=== PATIENT | female | born 1985 | race Two or more races ===

== ENCOUNTER 2024-07-07 15:12 | Emergency (ER) | payer MEDICAID, SELFPAY ==
[2024-07-07 15:26] VITALS: BMI 44.9
[2024-07-07 15:38] VITALS: BP 151/93; PULSE 118; RESP 20; TEMP 39.2; O2SAT 97
--- NOTE | 2024-07-07 16:07 | PD.EDURI ---
Upper Respiratory Inf. RME/HPI General Stated Complaint: FEVER Time Seen by Provider: 07/07/24 15:37 Arrival date/time: 07/07/24 15:12 38-year-old female reports with complaints of bodyaches fevers cough and congestion for several days. Patient states that she has been taking azyl-bhi-miobspr medications with no improvement of symptoms. Patient denies shortness of breath chest pain nausea vomiting weakness or fatigue Limitations: no limitations Related Data Home Medications ?Medication ?Instructions ?Recorded ?Confirmed ibuprofen 600 mg tablet 600 mg PO Q6H PRN Pain 02/13/20 02/13/20 Previous Rx's ?Medication ?Instructions ?Recorded fluconazole 150 mg tablet 150 mg PO QDAY #1 tab 02/13/20 (Diflucan) acetaminophen 500 mg tablet 1,000 mg (2 x 500 mg) PO QID PRN 05/31/21 fever or pain #30 tabs azithromycin 250 mg tablet See Rx Instructions PO .COMPLEX #6 05/31/21 tabs meclizine 50 mg tablet 50 mg PO BID PRN dizziness #20 tabs 04/11/23 dicyclomine 20 mg tablet 20 mg PO QID PRN abdominal pain 12/13/23 #14 tabs ondansetron 4 mg disintegrating 4 mg PO TID PRN nausea and 12/13/23 tablet vomiting #14 tabs Allergies Allergy/AdvReac Type Severity Reaction Status Date / Time No Known Allergies Allergy Verified 07/07/24 15:30 Review of Systems Constitutional Constitutional: Denies chills, Reports fever(s) and Denies headache(s) ENT Ears, Nose, Mouth, and Throat: Denies headache(s), Denies throat swelling, Denies tongue swelling and Denies vertigo Cardiovascular Cardiovascular: Denies chest pain and Denies dyspnea Respiratory Respiratory: Reports cough and Denies dyspnea Gastrointestinal Gastrointestinal: Denies nausea and Denies vomiting Integumentary/Breasts Skin/Breast: Denies new lesions and Denies rash Neurologic Neurologic: Denies headache(s) and Denies vertigo Hematologic/Lymphatic Hematologic/Lymphatic: Denies easy bleeding and Denies easy bruising Allergic/Immunologic Allergic/Immunologic: Denies throat swelling and Denies tongue swelling ED Exam General Limitations: Present no limitations General appearance: Present alert and in no apparent distress Head Head exam: Present atraumatic Eye Eye exam: Present normal appearance, PERRL and EOMI ENT ENT exam: Present normal exam, normal oropharynx and mucous membranes moist Neck Neck exam: Present normal inspection, full ROM and trachea midline Chest Chest inspection: Present normal inspection and symmetric chest wall rise Respiratory Respiratory exam: Present normal lung sounds bilaterally Cardiovascular Cardiovascular exam: Present regular rate, normal rhythm and normal heart sounds Abdominal Exam Abdominal exam: Present soft and normal bowel sounds Extremities Exam Extremities exam: Present normal inspection and full ROM Back Exam Back exam: Present normal inspection and full ROM Neurological Exam Neurological exam: Present alert, oriented X3 and CN II-XII intact Psychiatric Psychiatric exam: Present normal affect and normal mood Skin Skin exam: Present warm, dry, intact and normal color Course Quality Measures none Vital Signs Vital signs: Vital Signs Temperature 102.5 F H 07/07/24 15:38 Pulse Rate 118 H 07/07/24 15:38 Respiratory Rate 20 07/07/24 15:38 Blood Pressure 151/93 H 07/07/24 15:38 Pulse Oximetry (%) 97 07/07/24 15:38 Oxygen Delivery Method Room Air 07/07/24 15:38 Upper Respiratory Infection Patient data External records reviewed:: None Clinical information provided by:: patient Social determinants that could affect healthcare access:: none Patient has the following chronic illnesses:: NONE How is presenting disease/condition affected by chronic disease/condition?: no chronic disease Evaluation data The following diagnostics were reviewed and interpreted by me:: lab results Lab and/or radiology exams considered but not ordered:: none Interpretation Summary: Influenza A positive COVID-negative Medications / Prescriptions Medications or Prescriptions considered but not ordered:: None Medication administrations:: Ibuprofen Consultations Consultation(s) initiated? (list below): No Diagnosis Upper Respiratory Differential Diagnosis: upper respiratory infection, viral infection and influenza Most likely diagnosis given after review of the tests above:: flu Admission Indicated Admission indicated?: not indicated Admission Request Was there a request for admission?: No Disposition Plan Disposition Plan: Discharge Discharge Attestation Discharge Attestation: The patient and all family members were given an opportunity to ask questions and understood the discharge instructions. Discharge instructions specifically effects, indications for sooner follow up or return to the emergency department, and the expected course of current diagnosis. Patient condition: Stable Discharge Plan Plan Patient Disposition: HOME (Self Care) Prescriptions/Referrals Prescriptions/Med Rec: No Action ibuprofen 600 mg Tablet 600 mg PO Q6H PRN (Reason: Pain) fluconazole [Diflucan] 150 mg tablet 150 mg PO QDAY Qty: 1 0RF azithromycin 250 mg tablet See Rx Instructions .ROUTE .COMPLEX Qty: 6 0RF Rx Instructions: For 250 mg dose pack: take 500 mg today (day 1), then 250 mg for 4 days (days 2-5) acetaminophen 500 mg tablet 1,000 mg PO QID PRN (Reason: fever or pain) Qty: 30 0RF meclizine 50 mg tablet 50 mg PO BID PRN (Reason: dizziness) Qty: 20 0RF dicyclomine 20 mg tablet 20 mg PO QID PRN (Reason: abdominal pain) Qty: 14 0RF ondansetron 4 mg tablet,disintegrating 4 mg PO TID PRN (Reason: nausea and vomiting) Qty: 14 0RF Problem List Clinical Impression: Influenza A Patient/Caregiver Discharge Instructions Discharge Activity: activity as tolerated Education Materials: ED URI, Viral, No Abx (Adult) Additional Instructions: Your lab test were positive for the flu take medications as directed, hydrate well, get plenty of rest and follow up with PCP if you are not better in 5 days. The cough associated with the flu virus can sometimes last for several weeks after all other symptoms have gone, take OTC cough medication as needed for your cough Print Language: Norwegian Stand Alone Forms: Nancy Award Info., Patient Portal Info Letter
[2024-07-07] MEDS: IBUPROFEN TAB 400 MG TABLET 800 MG PO (16:32)
== END 2024-07-07 16:37 | disposition home or self-care (01) ==
PROVIDERS: Emergency Provider Emergency Medicine
DX: J10.1 Influenza due to other identified influenza virus with other respiratory manifestations (principal)
CPT/HCPCS: 99282; A9270

== ENCOUNTER 2024-07-09 18:04 | Emergency (ER) | payer MEDICAID, SELFPAY ==
[2024-07-09 18:05] VITALS: BMI 44.4
[2024-07-09 18:28] VITALS: BP 139/88; PULSE 100; RESP 18; TEMP 38.2; O2SAT 96
--- NOTE | 2024-07-09 18:36 | XR_ITS ---
Examination: PA chest single view TECHNIQUE: Upright PA chest single view Exam date and time: July 09, 2024, 1901 hours INDICATIONS: Coughing chest pain beginning 3 days ago. FINDINGS: Normal heart size No lobar pneumonia. Stable pulmonary nodule right upper lobe compared with April 11, 2023 Intact osseous structures IMPRESSION: No lobar pneumonia
[2024-07-09 18:41] VITALS: TEMP 38.2
[2024-07-09] MEDS: NAPROXEN 250 MG TABLET 500 MG PO (18:41)
[2024-07-09] MEDS: ACETAMINOPHEN 500 MG TABLET 1000 MG PO (18:41)
[2024-07-09] MEDS: DiphenhydrAMINE 25 MG CAPSULE PO (18:42)
--- NOTE | 2024-07-09 18:44 | PD.EDURI ---
Upper Respiratory Inf. RME/HPI General Chief Complaint: Flu Like Symptoms Stated Complaint: FEVER, SOB, CHILLS, THROAT PAIN, WAS SEEN HERE Time Seen by Provider: 07/09/24 18:40 Arrival date/time: 07/09/24 18:04 38F with history of DM presents to ED with several days of cough, sore throat, and some SOB. Patient it was diagnosed with flu A several days ago. Limitations: no limitations Related Data Home Medications ?Medication ?Instructions ?Recorded ?Confirmed ibuprofen 600 mg tablet 600 mg PO Q6H PRN Pain 02/13/20 02/13/20 Previous Rx's ?Medication ?Instructions ?Recorded fluconazole 150 mg tablet 150 mg PO QDAY #1 tab 02/13/20 (Diflucan) acetaminophen 500 mg tablet 1,000 mg (2 x 500 mg) PO QID PRN 05/31/21 fever or pain #30 tabs azithromycin 250 mg tablet See Rx Instructions PO .COMPLEX #6 05/31/21 tabs meclizine 50 mg tablet 50 mg PO BID PRN dizziness #20 tabs 04/11/23 dicyclomine 20 mg tablet 20 mg PO QID PRN abdominal pain 12/13/23 #14 tabs ondansetron 4 mg disintegrating 4 mg PO TID PRN nausea and 12/13/23 tablet vomiting #14 tabs Allergies Allergy/AdvReac Type Severity Reaction Status Date / Time No Known Allergies Allergy Verified 07/09/24 18:05 Review of Systems Review of Systems Systems Reviewed: All systems reviewed, normal except as documented Constitutional Constitutional: Reports system reviewed and no additional complaints, except as documented, Denies fever(s) and Denies headache(s) ENT Ears, Nose, Mouth, and Throat: Reports as per HPI, Denies disequilibrium, Denies headache(s) and Reports sore throat Cardiovascular Cardiovascular: Reports system reviewed and no additional complaints, except as documented, Denies chest pain and Reports dyspnea Respiratory Respiratory: Reports system reviewed and no additional complaints, except as documented, Reports as per HPI, Reports cough and Reports dyspnea Gastrointestinal Gastrointestinal: Reports system reviewed and no additional complaints, except as documented, Denies abdominal pain, Denies nausea and Denies vomiting Neurologic Neurologic: Reports system reviewed and no additional complaints, except as documented, Denies confusion, Denies disequilibrium and Denies headache(s) Psychiatric Psychiatric: Denies confusion Past Medical History Past Medical History CARDIAC: Positive Hypercholesterolemia; Negative Cardiac Disorders or Congestive Heart Failure RESPIRATORY: Negative Chronic Obstructive Pulmonary Disease (COPD) or Asthma GENITOURINARY: Negative Renal Disease MUSCULOSKELETAL: Positive Carpal Tunnel Syndrome ENDOCRINE: Positive Diabetes Mellitus Type 2; Negative Diabetes Mellitus Type 1 HEMATOLOGIC: Negative Sickle Cell Disease Surgical History SURGICAL: Positive Section Social History SMOKING STATUS: Never smoker SUBSTANCE USE: does not use ED Exam General Limitations: Present no limitations General appearance: Present alert and in no apparent distress Head Head exam: Present atraumatic Eye Eye exam: Present normal appearance, PERRL and EOMI ENT ENT exam: Present normal exam, normal oropharynx and mucous membranes moist Neck Neck exam: Present normal inspection, full ROM and trachea midline Chest Chest inspection: Present normal inspection and symmetric chest wall rise Respiratory Respiratory exam: Present normal lung sounds bilaterally Cardiovascular Cardiovascular exam: Present regular rate, normal rhythm and normal heart sounds Abdominal Exam Abdominal exam: Present soft and normal bowel sounds Extremities Exam Extremities exam: Present normal inspection and full ROM Back Exam Back exam: Present normal inspection and full ROM Neurological Exam Neurological exam: Present alert, oriented X3 and CN II-XII intact Psychiatric Psychiatric exam: Present normal affect and normal mood Skin Skin exam: Present warm, dry, intact and normal color Course Quality Measures none Orders Category Date Time Status XR chest 1V portable Stat Exams 07/09/24 18:36 Completed CBC Stat Lab 07/09/24 19:09 Completed Comprehensive Metabolic Panel Stat Lab 07/09/24 19:09 Completed Troponin I Stat Lab 07/09/24 19:09 Completed Acetaminophen Tab [Tylenol ES Tab] Med 07/09/24 18:36 Discontinued 1,000 mg PO X1 ONE DiphenhydrAMINE [Benadryl] Med 07/09/24 18:36 Discontinued 25 mg PO X1 ONE Naproxen [Naprosyn] Med 07/09/24 18:36 Discontinued 500 mg PO X1 ONE Vital Signs Vital signs: Vital Signs Temperature 100.8 F H 07/09/24 18:28 Pulse Rate 100 07/09/24 18:28 Respiratory Rate 18 07/09/24 18:28 Blood Pressure 139/88 H 07/09/24 18:28 Pulse Oximetry (%) 96 07/09/24 18:28 Oxygen Delivery Method Room Air 07/09/24 18:28 O2 at 96% on RA and WNLs Upper Respiratory Infection MDM Narrative MDM Narrative:: 38F with history of DM presents to ED with several days of cough, sore throat, and some SOB. Patient it was diagnosed with flu A several days ago. Physical exam reveals clear ENT and lungs. Patient is mildly febrile, but does not appear toxic. WOB normal. CXR normal. No leukocytosis. CMP unremarkable. Trop normal. Patient data External records reviewed:: [facility] previous records Clinical information provided by:: patient Social determinants that could affect healthcare access:: none Patient has the following chronic illnesses:: DM How is presenting disease/condition affected by chronic disease/condition?: exacerbated by Evaluation data The following diagnostics were reviewed and interpreted by me:: lab results and radiology exam(s) Lab and/or radiology exams considered but not ordered:: ordered Interpretation Summary: above Medications / Prescriptions Medications or Prescriptions considered but not ordered:: ordered Medication administrations:: Medication Administration History Discontinued Medications Acetaminophen (Acetaminophen 500 Mg Tablet) 1,000 mg PO X1 ONE Stop: 07/09/24 18:37 Last Admin: 07/09/24 18:41 Dose: 1,000 mg Documented By: OA Diphenhydramine HCl (Diphenhydramine 25 Mg Capsule) 25 mg PO X1 ONE Stop: 07/09/24 18:37 Last Admin: 07/09/24 18:42 Dose: 25 mg Documented By: OA Naproxen (Naproxen 250 Mg Tablet) 500 mg PO X1 ONE Stop: 07/09/24 18:37 Last Admin: 07/09/24 18:41 Dose: 500 mg Documented By: OA above Consultations Consultation(s) initiated? (list below): No Diagnosis Upper Respiratory Differential Diagnosis: upper respiratory infection, croup, otitis media, sinusitis, viral infection, bronchitis, influenza and pharyngitis Most likely diagnosis given after review of the tests above:: flu A+ Admission Indicated Admission indicated?: not indicated Admission Request Was there a request for admission?: No Disposition Plan Disposition Plan: Discharge Discharge Attestation Discharge Attestation: The patient and all family members were given an opportunity to ask questions and understood the discharge instructions. Discharge instructions specifically effects, indications for sooner follow up or return to the emergency department, and the expected course of current diagnosis. Patient condition: Stable Discharge Plan Plan Patient Disposition: HOME (Self Care) Disposition Comment: Stable Prescriptions/Referrals Prescriptions/Med Rec: No Action ibuprofen 600 mg Tablet 600 mg PO Q6H PRN (Reason: Pain) fluconazole [Diflucan] 150 mg tablet 150 mg PO QDAY Qty: 1 0RF azithromycin 250 mg tablet See Rx Instructions .ROUTE .COMPLEX Qty: 6 0RF Rx Instructions: For 250 mg dose pack: take 500 mg today (day 1), then 250 mg for 4 days (days 2-5) acetaminophen 500 mg tablet 1,000 mg PO QID PRN (Reason: fever or pain) Qty: 30 0RF meclizine 50 mg tablet 50 mg PO BID PRN (Reason: dizziness) Qty: 20 0RF dicyclomine 20 mg tablet 20 mg PO QID PRN (Reason: abdominal pain) Qty: 14 0RF ondansetron 4 mg tablet,disintegrating 4 mg PO TID PRN (Reason: nausea and vomiting) Qty: 14 0RF Referrals: Lydia Ortiz FNP [Primary Care Provider] - In 1 week Problem List Clinical Impression: Influenza A Patient/Caregiver Discharge Instructions Education Materials: ED Influenza (Adult) Additional Instructions: Please follow-up with PCP within 24-48 hours and return immediately if symptoms worsen. Ibuprofen/Tylenol can be used simultaneously for greater fever/pain control. Benadryl is good for cough, congestion, and sleep. Print Language: Ukrainian Stand Alone Forms: Work/School Release, Patient Portal Info Letter KALEIGH/AMNA Supervising Physician KALEIGH/AMNA Supervising Physician: Dr. Villa
[2024-07-09 19:23] LABS: Basophils % (Auto) 0 % (0-2.5); Eosinophils # (Auto) 0.1 Thou/mm3 (0.0-0.5); Eosinophils % (Auto) 1 % (0-10); Hematocrit 41.6 % (36.0-46.0); Hemoglobin 14.1 g/dL (12.0-16.0); Immature Granulocytes % (Auto) 0 % (0-0); Immature Granulocytes Auto 0.02 Thou/mm3 (0.00-0.00); Lymphocytes # (Auto) 2.2 Thou/mm3 (1.0-4.8); Lymphocytes % (Auto) 32 % (10-50); Mean Corpuscular HGB Conc 33.9 g/dl (31.0-37.0); Mean Corpuscular Hemoglobin 29.6 pg (25.0-35.0); Mean Corpuscular Volume 87 fL (80-100); Monocytes # (Auto) 0.8 Thou/mm3 (0.0-0.8); Monocytes % (Auto) 12 % (0-12); Neutrophils # (Auto) 3.7 Thou/mm3 (1.8-7.7); Neutrophils % (Auto) 54 % (37-80); Nucleated Red Blood Cell % 0 /100 WBC (0); Platelet Count 327 Thou/mm3 (140-440); RDW Standard Deviation 41.6 fL (36.4-46.3); Red Blood Count 4.76 Miln/mm3 (4.00-5.20); White Blood Count 6.7 Thou/mm3 (3.6-11.0)
[2024-07-09 19:41] LABS: Alanine Aminotransferase 67 U/L (10-49); Albumin, Serum 4.8 gm/dL (3.5-5.0); Albumin/Globulin Ratio 1.6 (1.2-2.2); Alkaline Phosphatase 115 U/L (46-116); Anion Gap 10 (7-16); Aspartate Amino Transferase 56 U/L (0-34); BUN/Creatinine Ratio 11 Ratio (12-20); Bilirubin,Total 0.3 mg/dL (0.3-1.2); Blood Urea Nitrogen 10 mg/dL (9-23); Calcium 9.4 mg/dL (8.3-10.6); Calcium (Corrected) 9.4 mg/dL (8.5-10.1); Carbon Dioxide 25.5 mMol/L (20.0-31.0); Chloride 102 mMol/L (98-107); Creatinine (Component) 0.9 mg/dL (0.6-1.3); Estimated Creatinine Clearance 113.2 mL/min (>60); Glucose 203 mg/dL (74-106); Osmolality,Calculated 278 (275-295); Sodium 137 mMol/L (136-145); Total Protein 7.8 gm/dL (5.7-8.2); Troponin I < 0.002 ng/mL (0.0-0.045); eGFR > 60 See Note
[2024-07-09 19:52] VITALS: RESP 18
== END 2024-07-09 19:57 | disposition home or self-care (01) ==
PROVIDERS: Physician Assistant; Emergency Provider Emergency Medicine; PCP Nurse Practitioner
DX: J10.1 Influenza due to other identified influenza virus with other respiratory manifestations (principal); E11.9 Type 2 diabetes mellitus without complications
CPT/HCPCS: 36415; 71045; 80053; 84484; 85025; 99283; A9270

== ENCOUNTER 2024-07-23 13:32 | Emergency (ER) | payer MEDICAID, SELFPAY ==
[2024-07-23 13:42] VITALS: BP 139/90; PULSE 88; RESP 20; TEMP 36.9; O2SAT 96; BMI 44.4
--- NOTE | 2024-07-23 13:47 | EDNOTE_ITS ---
Upper Respiratory Inf. RME/HPI General Chief Complaint: Headache Stated Complaint: HEADACHE, STUFFY NOSE, COUGH Time Seen by Provider: 07/23/24 13:46 Arrival date/time: 07/23/24 13:32 39-year-old female presents to the emergency department complaints of facial pain and facial pressure stuffy nose and green nasal discharge patient is concerned about sinusitis Limitations: no limitations Related Data Home Medications ?Medication ?Instructions ?Recorded ?Confirmed ibuprofen 600 mg tablet 600 mg PO Q6H PRN Pain 02/1202/13/20 Previous Rx's ?Medication ?Instructions ?Recorded fluconazole 150 mg tablet 150 mg PO QDAY #1 tab (Diflucan) acetaminophen 500 mg tablet 1,000 mg (2 x 500 mg) PO Q ID PRN 05/31/21 fever or pain #30 tabs azithromycin 250 mg tablet See Rx Instructions PO .COM PLEX #6 05/31/21 tabs meclizine 50 mg tablet 50 mg PO BID PRN dizziness # 20 tabs 04/11/23 dicyclomine 20 mg tablet 20 mg PO QID PRN abdominal p ain 12/13/23 #14 tabs ondansetron 4 mg disintegrating 4 mg PO TID PRN nausea and 12/13/23 tablet vomiting #14 tabs amoxicillin 875 mg-potassium 1 tab PO BID 7 days #14 t abs 07/23/24 clavulanate 125 mg tablet ibuprofen 800 mg tablet 800 mg PO TID PRN pain #30 t abs 07/23/24 Allergies Allergy/AdvReac Type Severity Reaction Status Date / Time No Known Allergies Allergy Verified 07/23/24 13:34 Review of Systems Review of Systems Systems Reviewed: All systems reviewed, normal except as documented Constitutional Constitutional: Reports system reviewed and no additional complaints, except as documented, Denies fever(s) and Denies headache(s) Eyes Eyes: Reports system reviewed and no additional complaints, except as documented and Denies blurry vision ENT Ears, Nose, Mouth, and Throat: Reports system reviewed and no additional complaints, except as documented, Denies headache(s), Reports nasal congestion, Reports nasal discharge, Reports nose pain, Reports sinus pain and Reports sinus pressure Cardiovascular Cardiovascular: Reports system reviewed and no additional complaints, except as documented, Denies chest pain and Denies dyspnea Respiratory Respiratory: Reports system reviewed and no additional complaints, except as d ocumented, Denies chest congestion, Denies cough and Denies dyspnea Gastrointestinal Gastrointestinal: Reports system reviewed and no additional complaints, except as documented and Denies abdominal pain Integumentary/Breasts Skin/Breast: Reports system reviewed and no additional complaints, except as documented and Denies rash Neurologic Neurologic: Reports system reviewed and no additional complaints, except as documented, Reports as per HPI and Denies headache(s) Past Medical History Past Medical History CARDIAC: Positive Hypercholesterolemia; Negative Cardiac Disorders or Congestive Heart Failure RESPIRATORY: Negative Chronic Obstructive Pulmonary Disease (COPD) or Asthma GENITOURINARY: Negative Renal Disease MUSCULOSKELETAL: Positive Carpal Tunnel Syndrome ENDOCRINE: Positive Diabetes Mellitus Type 2; Negative Diabetes Mellitus Type 1 HEMATOLOGIC: Negative Sickle Cell Disease Surgical History SURGICAL: Positive Section Social History SMOKING STATUS: Never smoker SUBSTANCE USE: does not use ED Exam General Limitations: Present no limitations General appearance: Present alert and in no apparent distress Head Head exam: Present atraumatic, normocephalic and normal inspection Eye Eye exam: Present normal appearance, PERRL and EOMI; Absent conjunctival injection ENT ENT exam: Present mucous membranes moist Expanded ENT Exam Nose exam: Present sinus tenderness Neck Neck exam: Present normal inspection, full ROM and trachea midline Chest Chest inspection: Present normal inspection and symmetric chest wall rise Respiratory Respiratory exam: Present normal lung sounds bilaterally Cardiovascular Cardiovascular exam: Present regular rate, normal rhythm and normal heart sounds Abdominal Exam Abdominal exam: Present soft and normal bowel sounds Extremities Exam Extremities exam: Present normal inspection and full ROM Back Exam Back exam: Present normal inspection and full ROM Neurological Exam Neurological exam: Present alert, oriented X3, CN II-XII intact, normal gait and reflexes normal; Absent motor sensory deficit Psychiatric Psychiatric exam: Present normal affect and normal mood Skin Skin exam: Present warm, dry, intact and normal color Course Quality Measures none Vital Signs Vital signs: Vital Signs Temperature 98.4 F 07/23/24 13:42 Pulse Rate 88 07/23/24 13:42 Respiratory Rate 20 07/23/24 13:42 Blood Pressure 139/90 H 07/23/24 13:42 Pulse Oximetry (%) 96 07/23/24 13:42 Oxygen Delivery Method Room Air 07/23/24 13:42 O2 saturation 96% room air within normal limits Upper Respiratory Infection MDM Narrative MDM Narrative:: 39-year-old female presents to the emergency department complaints of facial pain and facial pressure stuffy nose and green nasal discharge patient is concerned about sinusitis On exam patient does have facial tenderness I suspect patient does have sinusitis patient be treated with course of antibiotics Patient discharged home in no distress to follow-up with primary care doctor in the next 24 to 48 hours and for any worsening symptoms to return to the ER immediately Patient data External records reviewed:: [facility] previous records Clinical information provided by:: patient Social determinants that could affect healthcare access:: none Patient has the following chronic illnesses:: Diabetes How is presenting disease/condition affected by chronic disease/condition?: exacerbated by Evaluation data The following diagnostics were reviewed and interpreted by me:: other (specify) (N/A) Lab and/or radiology exams considered but not ordered:: Consider not ordered Interpretation Summary: N/A Medications / Prescriptions Medications or Prescriptions considered but not ordered:: Given Medication administrations:: Given Consultations Consultation(s) initiated? (list below): No Diagnosis Upper Respiratory Differential Diagnosis: upper respiratory infection, otitis media and sinusitis Most likely diagnosis given after review of the tests above:: Final status Admission Indicated Admission indicated?: not indicated Admission Request Was there a request for admission?: No Disposition Plan Disposition Plan: Discharge Discharge Attestation Discharge Attestation: The patient and all family members were given an opportunity to ask questions and understood the discharge instructions. Discharge instructions specifically effects, indications for sooner follow up or return to the emergency department, and the expected course of current diagnosis. Patient condition: Stable Discharge Plan Plan Patient Disposition: HOME (Self Care) Disposition Comment: stable Prescriptions/Referrals Prescriptions/Med Rec: New ibuprofen 800 mg tablet 800 mg PO TID PRN (Reason: pain) Qty: 30 0RF amoxicillin-pot clavulanate 875-125 mg tablet 1 tab PO BID 7 Days Qty: 14 0RF No Action ibuprofen 600 mg Tablet 600 mg PO Q6H PRN (Reason: Pain) fluconazole [Diflucan] 150 mg tablet 150 mg PO QDAY Qty: 1 0RF azithromycin 250 mg tablet See Rx Instructions .ROUTE .COMPLEX Qty: 6 0RF Rx Instructions: For 250 mg dose pack: take 500 mg today (day 1), then 250 mg for 4 days (days 2-5) acetaminophen 500 mg tablet 1,000 mg PO QID PRN (Reason: fever or pain) Qty: 30 0RF meclizine 50 mg tablet 50 mg PO BID PRN (Reason: dizziness) Qty: 20 0RF dicyclomine 20 mg tablet 20 mg PO QID PRN (Reason: abdominal pain) Qty: 14 0RF ondansetron 4 mg tablet,disintegrating 4 mg PO TID PRN (Reason: nausea and vomiting) Qty: 14 0RF Problem List Clinical Impression: Sinusitis Patient/Caregiver Discharge Instructions Education Materials: Causes of Sinusitis Additional Instructions: Please follow up with your primary care doctor in the next 24-48hrs for any worsening symptoms return here immediately Print Language: Tajik Stand Alone Forms: Nancy Award Info., Work/School Release, Patient Portal Info Letter PA/INDUSTRIAL LABORER Supervising Physician PA/AMNA Supervising Physician: dr quezada
== END 2024-07-23 16:20 | disposition home or self-care (01) ==
PROVIDERS: Emergency Provider Emergency Medicine
DX: J32.9 Chronic sinusitis, unspecified (principal); E11.9 Type 2 diabetes mellitus without complications; E78.00 Pure hypercholesterolemia, unspecified
CPT/HCPCS: 99281

== ENCOUNTER 2024-11-06 18:01 | Emergency (ER) | payer MEDICAID, SELFPAY ==
[2024-11-06 18:02] VITALS: BMI 46.7
[2024-11-06 18:28] VITALS: BP 137/88; PULSE 81; RESP 17; TEMP 37.2; O2SAT 99
--- NOTE | 2024-11-06 18:43 | EKG_ITS ---
[facility] Test Date: 2024-11-06 Pat Name: ALEX LYONS Department: Room: - Gender: Female Infrastructure Solutions Architect: : 1985 Requested By: Stef Hilario Order Number: [id number] Reading MD: Stef Hilario Measurements Intervals Goodman Rate: 93 P: 15 MA: 136 QRS: 38 QRSD: 106 T: 23 QT: 352 QTc: 439 Interpretive Statements SINUS RHYTHM POSSIBLE ANTERIOR MYOCARDIAL INFARCTION , PROBABLY OLD [30 ms Q WAVE IN V3/V4, OR R < 0.2 mV IN V4] Compared to ECG 04/11/2023 09:34:00 No significant changes /store/S0/[id number]
--- NOTE | 2024-11-06 18:43 | XR_ITS ---
Examination: PA chest single view TECHNIQUE: Upright PA chest single view Date and time: November 06, 2024 1910 hours Comparison the 21/10/2024 INDICATIONS: Chest pain numbness in the right arm beginning 5 days ago. FINDINGS: Normal heart size Stable pulmonary nodule right upper lobe No pulmonary edema Suspicious for mild pneumonia in the lingular segment obscuring detail of the left cardiac contour IMPRESSION: Suspicious for early pneumonia lingular segment left upper lobe
[2024-11-06] MEDS: DIAZEPAM 5 MG TABLET 10 MG PO (19:00)
[2024-11-06 19:52] LABS: Basophils # (Auto) 0.1 Thou/mm3 (0.0-0.2); Basophils % (Auto) 0 % (0-2.5); Eosinophils # (Auto) 0.4 Thou/mm3 (0.0-0.5); Eosinophils % (Auto) 3 % (0-10); Hematocrit 37.9 % (36.0-46.0); Hemoglobin 13.7 g/dL (12.0-16.0); Immature Granulocytes % (Auto) 1 % (0-0); Immature Granulocytes Auto 0.07 Thou/mm3 (0.00-0.00); Lymphocytes # (Auto) 4.1 Thou/mm3 (1.0-4.8); Lymphocytes % (Auto) 29 % (10-50); Mean Corpuscular HGB Conc 36.1 g/dl (31.0-37.0); Mean Corpuscular Volume 83 fL (80-100); Monocytes # (Auto) 0.7 Thou/mm3 (0.0-0.8); Monocytes % (Auto) 5 % (0-12); Neutrophils # (Auto) 8.6 Thou/mm3 (1.8-7.7); Neutrophils % (Auto) 62 % (37-80); Nucleated Red Blood Cell % 0 /100 WBC (0); Platelet Count 342 Thou/mm3 (140-440); Red Blood Count 4.57 Miln/mm3 (4.00-5.20); White Blood Count 13.9 Thou/mm3 (3.6-11.0)
--- NOTE | 2024-11-06 20:11 | PD.EDANX ---
ED Anxiety RME/HPI General Chief Complaint: Chest Pain Stated Complaint: RIGHT ARM/CHEST PAIN , HOT/SWEATY X5DAY Time Seen by Provider: 11/06/24 18:39 Arrival date/time: 11/06/24 18:01 39F with history of DM presents to ED with 5 days of R arm/chest pain. Patient states she's been having increased stress due to family problems recently. Limitations: no limitations Related Data Home Medications ?Medication ?Instructions ?Recorded ?Confirmed ibuprofen 600 mg tablet 600 mg PO Q6H PRN Pain 02/13/20 02/13/20 Previous Rx's ?Medication ?Instructions ?Recorded fluconazole 150 mg tablet 150 mg PO QDAY #1 tab 02/13/20 (Diflucan) acetaminophen 500 mg tablet 1,000 mg (2 x 500 mg) PO QID PRN 05/31/21 fever or pain #30 tabs azithromycin 250 mg tablet See Rx Instructions PO .COMPLEX #6 05/31/21 tabs meclizine 50 mg tablet 50 mg PO BID PRN dizziness #20 tabs 04/11/23 dicyclomine 20 mg tablet 20 mg PO QID PRN abdominal pain 12/13/23 #14 tabs ondansetron 4 mg disintegrating 4 mg PO TID PRN nausea and 12/13/23 tablet vomiting #14 tabs ibuprofen 800 mg tablet 800 mg PO TID PRN pain #30 tabs 07/23/24 Allergies Allergy/AdvReac Type Severity Reaction Status Date / Time No Known Allergies Allergy Verified 11/06/24 18:04 Review of Systems Review of Systems Systems Reviewed: All systems reviewed, normal except as documented Constitutional Constitutional: Reports system reviewed and no additional complaints, except as documented, Denies fever(s) and Denies headache(s) ENT Ears, Nose, Mouth, and Throat: Denies disequilibrium and Denies headache(s) Cardiovascular Cardiovascular: Reports system reviewed and no additional complaints, except as documented, Reports as per HPI, Reports chest pain and Denies dyspnea Respiratory Respiratory: Reports system reviewed and no additional complaints, except as documented, Denies cough and Denies dyspnea Gastrointestinal Gastrointestinal: Reports system reviewed and no additional complaints, except as documented, Denies abdominal pain, Denies nausea and Denies vomiting Musculoskeletal Musculoskeletal: Reports as per HPI and Reports arthralgias Neurologic Neurologic: Reports system reviewed and no additional complaints, except as documented, Denies confusion, Denies disequilibrium and Denies headache(s) Psychiatric Psychiatric: Denies confusion Past Medical History Past Medical History CARDIAC: Positive Hypercholesterolemia; Negative Cardiac Disorders or Congestive Heart Failure RESPIRATORY: Negative Chronic Obstructive Pulmonary Disease (COPD) or Asthma GENITOURINARY: Negative Renal Disease MUSCULOSKELETAL: Positive Carpal Tunnel Syndrome ENDOCRINE: Positive Diabetes Mellitus Type 2; Negative Diabetes Mellitus Type 1 HEMATOLOGIC: Negative Sickle Cell Disease Surgical History SURGICAL: Positive Section Social History SMOKING STATUS: Never smoker SUBSTANCE USE: does not use ED Exam General Limitations: Present no limitations General appearance: Present alert and in no apparent distress Head Head exam: Present atraumatic Eye Eye exam: Present normal appearance, PERRL and EOMI ENT ENT exam: Present normal exam, normal oropharynx and mucous membranes moist Neck Neck exam: Present normal inspection, full ROM and trachea midline Chest Chest inspection: Present normal inspection and symmetric chest wall rise Respiratory Respiratory exam: Present normal lung sounds bilaterally Cardiovascular Cardiovascular exam: Present regular rate, normal rhythm and normal heart sounds Abdominal Exam Abdominal exam: Present soft and normal bowel sounds Extremities Exam Extremities exam: Present normal inspection and full ROM Back Exam Back exam: Present normal inspection and full ROM Neurological Exam Neurological exam: Present alert, oriented X3 and CN II-XII intact Psychiatric Psychiatric exam: Present normal affect and normal mood Skin Skin exam: Present warm, dry, intact and normal color Course Quality Measures none Orders Category Date Time Status EKG (ED ONLY) *Do not use* NOW Care 11/06/24 18:43 Completed EKG (ED Only) Stat Exams 11/06/24 18:43 Draft XR chest 1V portable Stat Exams 11/06/24 18:43 Completed CBC Stat Lab 11/06/24 19:31 Completed Comprehensive Metabolic Panel Stat Lab 11/06/24 19:31 Received Troponin I Stat Lab 11/06/24 19:31 Received Diazepam [Valium] Med 11/06/24 18:46 Discontinued 10 mg PO X1 ONE Vital Signs Vital signs: Vital Signs Temperature 98.9 F 11/06/24 18:28 Pulse Rate 81 11/06/24 18:28 Respiratory Rate 17 11/06/24 18:28 Blood Pressure 137/88 H 11/06/24 18:28 Pulse Oximetry (%) 99 11/06/24 18:28 Oxygen Delivery Method Room Air 11/06/24 18:28 Anxiety MDM Narrative MDM Narrative: 39F with history of DM presents to ED with 5 days of R arm/chest pain. Patient states she's been having increased stress due to family problems recently. Physical exam reveals clear lungs. Normal WOB. Patient is afebrile, alert, but anxious. EKG is NSR. Patient eloped. Patient data External records reviewed:: [facility] previous records Clinical information provided by:: patient Social determinants that could affect healthcare access:: none Patient has the following chronic illnesses:: DM How is presenting disease/condition affected by chronic disease/condition?: exacerbated by Evaluation data The following diagnostics were reviewed and interpreted by me:: lab results, radiology exam(s) and EKG tracing(s) Lab and/or radiology exams considered but not ordered:: ordered Interpretation Summary: above Medications / Prescriptions Medications or Prescriptions considered but not ordered:: ordered Medication administrations:: Medication Administration History Discontinued Medications Diazepam (Diazepam 5 Mg Tablet) 10 mg PO X1 ONE Stop: 11/06/24 18:47 Last Admin: 11/06/24 19:00 Dose: 10 mg Documented By: OA Consultations Consultation(s) initiated? (list below): No Diagnosis Differential diagnosis anxiety: hyperventilation, panic disorder, acute anxiety and other (PNA, stress reaction) Most likely diagnosis given after review of the tests above:: stress reaction Admission Indicated Admission indicated?: not indicated Admission Request Was there a request for admission?: No Disposition Plan Disposition Plan: other (specify) (eloped) Discharge Plan Plan Patient Disposition: Elopement Prescriptions/Referrals Prescriptions/Med Rec: No Action ibuprofen 600 mg Tablet 600 mg PO Q6H PRN (Reason: Pain) fluconazole [Diflucan] 150 mg tablet 150 mg PO QDAY Qty: 1 0RF azithromycin 250 mg tablet See Rx Instructions .ROUTE .COMPLEX Qty: 6 0RF Rx Instructions: For 250 mg dose pack: take 500 mg today (day 1), then 250 mg for 4 days (days 2-5) acetaminophen 500 mg tablet 1,000 mg PO QID PRN (Reason: fever or pain) Qty: 30 0RF meclizine 50 mg tablet 50 mg PO BID PRN (Reason: dizziness) Qty: 20 0RF dicyclomine 20 mg tablet 20 mg PO QID PRN (Reason: abdominal pain) Qty: 14 0RF ondansetron 4 mg tablet,disintegrating 4 mg PO TID PRN (Reason: nausea and vomiting) Qty: 14 0RF ibuprofen 800 mg tablet 800 mg PO TID PRN (Reason: pain) Qty: 30 0RF Referrals: Delvin Paris MD [Primary Care Provider] - In 1 week Problem List Clinical Impression: Stress reaction Patient/Caregiver Discharge Instructions Print Language: Belarusian
[2024-11-06 20:26] LABS: Alanine Aminotransferase 30 U/L (10-49); Albumin, Serum 4.5 gm/dL (3.5-5.0); Albumin/Globulin Ratio 1.8 (1.2-2.2); Alkaline Phosphatase 131 U/L (46-116); Anion Gap 11 (7-16); Aspartate Amino Transferase 21 U/L (0-34); BUN/Creatinine Ratio 11 Ratio (12-20); Bilirubin,Total 0.2 mg/dL (0.3-1.2); Blood Urea Nitrogen 10 mg/dL (9-23); Calcium 9.6 mg/dL (8.3-10.6); Calcium (Corrected) 9.6 mg/dL (8.5-10.1); Carbon Dioxide 27.4 mMol/L (20.0-31.0); Chloride 101 mMol/L (98-107); Creatinine (Component) 0.9 mg/dL (0.6-1.3); Estimated Creatinine Clearance 115.7 mL/min (>60); Globulin 2.5 gm/dL (2.3-3.5); Glucose 238 mg/dL (74-106); Osmolality,Calculated 284 (275-295); Potassium 4.2 mMol/L (3.4-5.1); Sodium 139 mMol/L (136-145); Troponin I < 0.002 ng/mL (0.0-0.045); eGFR > 60 See Note
--- NOTE | 2024-11-06 20:47 | PC.NURSE ---
nax1 at this one
== END 2024-11-06 22:45 | disposition left against medical advice (07) ==
PROVIDERS: Physician Assistant; Emergency Provider Emergency Medicine; PCP Obstetrics & Gynecology
DX: F43.9 Reaction to severe stress, unspecified (principal); R94.31 Abnormal electrocardiogram [ECG] [EKG]; R07.9 Chest pain, unspecified; R20.0 Anesthesia of skin; E78.00 Pure hypercholesterolemia, unspecified; Z53.29 Procedure and treatment not carried out because of patient's decision for other reasons
CPT/HCPCS: 36415; 71045; 80053; 84484; 85025; 93005; 99281; A9270

== ENCOUNTER 2024-11-13 18:29 | Emergency (ER) | payer MEDICAID, SELFPAY ==
[2024-11-13 18:31] VITALS: BMI 44.4
[2024-11-13 19:20] VITALS: BP 136/87; PULSE 100; RESP 18; TEMP 36.6; O2SAT 96
--- NOTE | 2024-11-13 19:28 | XR_ITS ---
Examination: CT brain head without contrast. 2-D sagittal coronal reconstructions Date and time of exam:November 13, 2024 at 2113 hours INDICATIONS: Dizziness episodes today. COMPARISON: April 11, 2023 CTDI: vol (mGy): 57 DLP: (mGycm):1106 Technique: Multiple CT axial sections of the brain have been obtained, 5 mm slice thickness. Contrast has not been administered. 2-D sagittal, coronal reconstructions have been obtained Low dose protocols were performed. One or more of the following dose reduction techniques were used; automated exposure control, adjustment of the mA and/or KV according to patient size, use of iterative reconstruction technique. Findings: No significant ventricular enlargement. Intra-axial or extra-axial hemorrhage density is not seen. No mass effect or midline shift Basal cisterns are not remarkable. Fourth ventricle is midline. Cranial vault intact. Impression: Negative for acute hemorrhage, mass effect or midline shift. Advise clinical correlation follow up accordingly
--- NOTE | 2024-11-13 19:28 | EKG_ITS ---
[facility] Test Date: 2024-11-13 Pat Name: ALEX LYONS Department: Room: - Gender: Female Recording Engineer: : [id number] Requested By: Stef Hilario Order Number: [id number] Reading MD: Stef Hilario Measurements Intervals Moodus Rate: 99 P: 48 WA: 140 QRS: 44 QRSD: 110 T: 22 QT: 352 QTc: 453 Interpretive Statements SINUS RHYTHM Compared to ECG 11/06/2024 18:48:12 Myocardial infarct finding no longer present /store/S0/[id number].pdf
[2024-11-13] MEDS: MECLIZINE HCL 25 MG TABLET PO (19:36)
[2024-11-13] MEDS: DIAZEPAM 5 MG TABLET 10 MG PO (19:36)
--- NOTE | 2024-11-13 19:38 | EDNOTE_ITS ---
<Statement entered by Evelyne Rees MD - 11/14/24 18:29> As co-signing physician, I was present and available for consult prn. I concur with the plan and care as documented by the midlevel provider. ED Anxiety RME/HPI General Chief Complaint: Nausea/Vomiting/Diarrhea Stated Complaint: NAUSEOUS, DIZZY, HOT, HEART POUNDING X 2 WKS Time Seen by Provider: 11/13/24 19:31 Arrival date/time: 11/13/24 18:29 39F with history of DM presents to ED with 2 weeks of dizziness, heart palps, an d N/V. Patient was last week for this with normal cardiac work-up. Patient eloped last time, but states the Valium helped a lot. Patient states she's been having increased stress due to family problems recently. Limitations: no limitations Related Data Home Medications ?Medication ?Instructions ?Recorded ?Confirmed ibuprofen 600 mg tablet 600 mg PO Q6H PRN Pain 02/1202/13/20 Previous Rx's ?Medication ?Instructions ?Recorded fluconazole 150 mg tablet 150 mg PO QDAY #1 tab (Diflucan) acetaminophen 500 mg tablet 1,000 mg (2 x 500 mg) PO Q ID PRN 05/31/21 fever or pain #30 tabs azithromycin 250 mg tablet See Rx Instructions PO .COM PLEX #6 05/31/21 tabs meclizine 50 mg tablet 50 mg PO BID PRN dizziness # 20 tabs 04/11/23 dicyclomine 20 mg tablet 20 mg PO QID PRN abdominal p ain 12/13/23 #14 tabs ondansetron 4 mg disintegrating 4 mg PO TID PRN nausea and 12/13/23 tablet vomiting #14 tabs ibuprofen 800 mg tablet 800 mg PO TID PRN pain #30 t abs 07/23/24 Allergies Allergy/AdvReac Type Severity Reaction Status Date / Time No Known Allergies Allergy Verified 11/13/24 18:32 Review of Systems Review of Systems Systems Reviewed: All systems reviewed, normal except as documented Constitutional Constitutional: Reports system reviewed and no additional complaints, except as documented, Denies fever(s) and Denies headache(s) ENT Ears, Nose, Mouth, and Throat: Reports as per HPI, Denies disequilibrium, Denies headache(s) and Reports vertigo Cardiovascular Cardiovascular: Reports system reviewed and no additional complaints, except as documented, Reports as per HPI, Denies chest pain, Denies dyspnea and Reports palpitations Respiratory Respiratory: Reports system reviewed and no additional complaints, except as documented, Denies cough and Denies dyspnea Gastrointestinal Gastrointestinal: Reports system reviewed and no additional complaints, except as documented, Reports as per HPI, Denies abdominal pain, Reports nausea and Reports vomiting Neurologic Neurologic: Reports system reviewed and no additional complaints, except as documented, Denies confusion, Denies disequilibrium, Denies headache(s) and Reports vertigo Psychiatric Psychiatric: Denies confusion Endocrine Endocrine: Reports palpitations Past Medical History Past Medical History CARDIAC: Positive Hypercholesterolemia; Negative Cardiac Disorders or Congestive Heart Failure RESPIRATORY: Negative Chronic Obstructive Pulmonary Disease (COPD) or Asthma GENITOURINARY: Negative Renal Disease MUSCULOSKELETAL: Positive Carpal Tunnel Syndrome ENDOCRINE: Positive Diabetes Mellitus Type 2; Negative Diabetes Mellitus Type 1 HEMATOLOGIC: Negative Sickle Cell Disease Surgical History SURGICAL: Positive Section Social History SMOKING STATUS: Never smoker SUBSTANCE USE: does not use ED Exam General Limitations: Present no limitations General appearance: Present alert, in no apparent distress and anxious Head Head exam: Present atraumatic Eye Eye exam: Present normal appearance, PERRL and EOMI ENT ENT exam: Present normal exam, normal oropharynx and mucous membranes moist Neck Neck exam: Present normal inspection, full ROM and trachea midline Chest Chest inspection: Present normal inspection and symmetric chest wall rise Respiratory Respiratory exam: Present normal lung sounds bilaterally Cardiovascular Cardiovascular exam: Present regular rate, normal rhythm and normal heart sounds Abdominal Exam Abdominal exam: Present soft and normal bowel sounds Extremities Exam Extremities exam: Present normal inspection and full ROM Back Exam Back exam: Present normal inspection and full ROM Neurological Exam Neurological exam: Present alert, oriented X3 and CN II-XII intact Psychiatric Psychiatric exam: Present normal affect and normal mood Skin Skin exam: Present warm, dry, intact and normal color Course Quality Measures none Orders Category Date Time Status Blood glucose [Bedside Blood Glucose] NOW Care 11/13/24 19:28 Active EKG (ED ONLY) *Do not use* NOW Care 11/13/24 19:[address] head/brain wo con Stat Exams 11/13/24 19:28 Ordered EKG (ED Only) Stat Exams 11/13/24 19:28 Draft Diazepam [Valium] Med 11/13/24 19:28 Discontinued 10 mg PO X1 ONE Meclizine HCl [Antivert] Med 11/13/24 19:28 Discontinued 25 mg PO X1 ONE Vital Signs Vital signs: Vital Signs Temperature 98 F 11/13/24 19:20 Pulse Rate 100 11/13/24 19:20 Respiratory Rate 18 11/13/24 19:20 Blood Pressure 136/87 H 11/13/24 19:20 Pulse Oximetry (%) 96 11/13/24 19:20 Oxygen Delivery Method Room Air 11/13/24 19:20 Anxiety MDM Narrative MDM Narrative: 39F with history of DM presents to ED with 2 weeks of dizziness, heart palps, and N/V. Patient was last week for this with normal cardiac work-up. Patient eloped last time, but states the Valium helped a lot. Patient states she's been having increased stress due to family problems recently. Physical exam reveals clear lungs. RRR. Normal WOB. Normal pupil response and EOM. CN II-XII grossly intact. Gait normal. Speech normal. Patient is afebrile, alert, but anxious. EKG is NSR. BS low 200s. CT unremarkable. Climate Change Analyst given. Patient data External records reviewed:: [facility] previous records Clinical information provided by:: patient Social determinants that could affect healthcare access:: mental health Patient has the following chronic illnesses:: DM How is presenting disease/condition affected by chronic disease/condition?: uneffected by Evaluation data The following diagnostics were reviewed and interpreted by me:: lab results, radiology exam(s) and EKG tracing(s) Lab and/or radiology exams considered but not ordered:: ordered Interpretation Summary: above Medications / Prescriptions Medications or Prescriptions considered but not ordered:: ordered Medication administrations:: Medication Administration History Discontinued Medications Diazepam (Diazepam 5 Mg Tablet) 10 mg PO X1 ONE Stop: 11/13/24 19:29 Last Admin: 11/13/24 19:36 Dose: 10 mg Documented By: LEXIE Meclizine HCl (Meclizine Hcl 25 Mg Tablet) 25 mg PO X1 ONE Stop: 11/13/24 19:29 Last Admin: 11/13/24 19:36 Dose: 25 mg Documented By: LEXIE Consultations Consultation(s) initiated? (list below): No Diagnosis Differential diagnosis anxiety: hyperventilation, panic disorder, acute anxiety and other (dizziness) Most likely diagnosis given after review of the tests above:: dizziness Admission Indicated Admission indicated?: not indicated Admission Request Was there a request for admission?: No Disposition Plan Disposition Plan: Discharge Discharge Attestation Discharge Attestation: The patient and all family members were given an opportunity to ask questions and understood the discharge instructions. Discharge instructions specifically effects, indications for sooner follow up or return to the emergency department, and the expected course of current diagnosis. Patient condition: Stable Discharge Plan Plan Patient Disposition: HOME (Self Care) Discharge Disposition comment: Stable Prescriptions/Referrals Prescriptions/Med Rec: No Action ibuprofen 600 mg Tablet 600 mg PO Q6H PRN (Reason: Pain) fluconazole [Diflucan] 150 mg tablet 150 mg PO QDAY Qty: 1 0RF azithromycin 250 mg tablet See Rx Instructions .ROUTE .COMPLEX Qty: 6 0RF Rx Instructions: For 250 mg dose pack: take 500 mg today (day 1), then 250 mg for 4 days (days 2-5) acetaminophen 500 mg tablet 1,000 mg PO QID PRN (Reason: fever or pain) Qty: 30 0RF meclizine 50 mg tablet 50 mg PO BID PRN (Reason: dizziness) Qty: 20 0RF dicyclomine 20 mg tablet 20 mg PO QID PRN (Reason: abdominal pain) Qty: 14 0RF ondansetron 4 mg tablet,disintegrating 4 mg PO TID PRN (Reason: nausea and vomiting) Qty: 14 0RF ibuprofen 800 mg tablet 800 mg PO TID PRN (Reason: pain) Qty: 30 0RF Referrals: No Primary/Family,Physician [Primary Care Provider] - In 1 week Problem List Clinical Impression: Dizziness Patient/Caregiver Discharge Instructions Education Materials: ED Dizziness, Uncertain Cause Additional Instructions: Please follow-up with PCP within 24-48 hours and return immediately if symptoms worsen. Print Language: German Stand Alone Forms: Patient Portal Info Letter KALEIGH/AMNA Supervising Physician KALEIGH/AMNA Supervising Physician: Dr. Rees
== END 2024-11-13 22:01 | disposition home or self-care (01) ==
PROVIDERS: Emergency Provider Emergency Medicine
DX: R42 Dizziness and giddiness (principal); E11.9 Type 2 diabetes mellitus without complications
CPT/HCPCS: 70450; 93005; 99284; A9270

== ENCOUNTER 2025-03-18 21:22 | Emergency (ER) | payer MEDICAID, SELFPAY ==
[2025-03-18 21:23] VITALS: BMI 44.4
[2025-03-18 22:23] VITALS: BP 148/94; PULSE 113; RESP 20; TEMP 37; O2SAT 96
--- NOTE | 2025-03-18 22:43 | XR_ITS ---
EXAMINATION: PA lateral chest 2 views TECHNIQUE: Upright lateral chest 2 views Date and time: March 18, 2025, 10:52 p.m., comparison November 06, 2024 INDICATIONS: Congestion fever chills shortness of breath beginning 2 days ago. FINDINGS: Suspicious for early pneumonia right base Normal heart size Stable small granuloma right upper lobe Intact osseous structures IMPRESSION: Suspicious for early pneumonia right base
--- NOTE | 2025-03-18 22:44 | PD.EDURI ---
Upper Respiratory Inf. RME/HPI General Chief Complaint: Flu Like Symptoms Stated Complaint: GILES, SINUS PRESSURE, COUGH, THROAT LEES Time Seen by Provider: 03/18/25 22:17 Arrival date/time: 03/18/25 21:22 39-year-old female with no history of asthma or lung disorders presents with complaints of cough congestion fevers chills and shortness of breath x 2 days. Patient states that she is in significant medications with no improvement of symptoms Limitations: no limitations Related Data Home Medications ?Medication ?Instructions ?Recorded ?Confirmed ibuprofen 600 mg tablet 600 mg PO Q6H PRN Pain 02/13/20 02/13/20 Previous Rx's ?Medication ?Instructions ?Recorded fluconazole 150 mg tablet 150 mg PO QDAY #1 tab 02/13/20 (Diflucan) acetaminophen 500 mg tablet 1,000 mg (2 x 500 mg) PO QID PRN 05/31/21 fever or pain #30 tabs azithromycin 250 mg tablet See Rx Instructions PO .COMPLEX #6 05/31/21 tabs meclizine 50 mg tablet 50 mg PO BID PRN dizziness #20 tabs 04/11/23 dicyclomine 20 mg tablet 20 mg PO QID PRN abdominal pain 12/13/23 #14 tabs ondansetron 4 mg disintegrating 4 mg PO TID PRN nausea and 12/13/23 tablet vomiting #14 tabs ibuprofen 800 mg tablet 800 mg PO TID PRN pain #30 tabs 07/23/24 promethazine 6.25 mg-codeine 10 5 ml PO Q6H PRN cough #118 mL 03/19/25 mg/5 mL syrup Allergies Allergy/AdvReac Type Severity Reaction Status Date / Time No Known Allergies Allergy Verified 03/18/25 21:23 Review of Systems Constitutional Constitutional: Denies chills, Reports fever(s) and Denies headache(s) ENT Ears, Nose, Mouth, and Throat: Denies dental pain, Denies otalgia, Denies headache(s), Denies sore throat, Denies throat swelling and Denies vertigo Cardiovascular Cardiovascular: Denies chest pain and Reports dyspnea Respiratory Respiratory: Reports cough and Reports dyspnea Gastrointestinal Gastrointestinal: Denies nausea and Denies vomiting Musculoskeletal Musculoskeletal: Denies back pain and Denies joint swelling Integumentary/Breasts Skin/Breast: Denies rash and Denies wounds Neurologic Neurologic: Denies headache(s) and Denies vertigo Allergic/Immunologic Allergic/Immunologic: Denies throat swelling Past Medical History Past Medical History CARDIAC: Positive Hypercholesterolemia; Negative Cardiac Disorders or Congestive Heart Failure RESPIRATORY: Negative Chronic Obstructive Pulmonary Disease (COPD) or Asthma GENITOURINARY: Negative Renal Disease MUSCULOSKELETAL: Positive Carpal Tunnel Syndrome ENDOCRINE: Positive Diabetes Mellitus Type 2; Negative Diabetes Mellitus Type 1 HEMATOLOGIC: Negative Sickle Cell Disease Surgical History SURGICAL: Positive Section Social History SMOKING STATUS: Never smoker SUBSTANCE USE: does not use ED Exam General Limitations: Present no limitations General appearance: Present alert and in no apparent distress Head Head exam: Present atraumatic Eye Eye exam: Present normal appearance, PERRL and EOMI ENT ENT exam: Present normal exam, normal oropharynx and mucous membranes moist Neck Neck exam: Present normal inspection, full ROM and trachea midline Chest Chest inspection: Present normal inspection and symmetric chest wall rise Respiratory Respiratory exam: Present normal lung sounds bilaterally Cardiovascular Cardiovascular exam: Present regular rate, normal rhythm and normal heart sounds Abdominal Exam Abdominal exam: Present soft and normal bowel sounds Extremities Exam Extremities exam: Present normal inspection and full ROM Back Exam Back exam: Present normal inspection and full ROM Neurological Exam Neurological exam: Present alert, oriented X3 and CN II-XII intact Psychiatric Psychiatric exam: Present normal affect and normal mood Skin Skin exam: Present warm, dry, intact and normal color Course Course Course Narrative: Lab test for flu and COVID are negative chest x-ray with no infiltrates or opacities noted Quality Measures none Orders Category Date Time Status Bedside COVID-19 Antigen Test NOW Care 03/18/25 22:43 Active Bedside Influenza A&B Antigen Test NOW Care 03/18/25 22:43 Completed XR chest 2V Stat Exams 03/18/25 22:43 Completed Vital Signs Vital signs: Vital Signs Temperature 98.6 F 03/18/25 22:23 Pulse Rate 113 H 03/18/25 22:23 Respiratory Rate 20 03/18/25 22:23 Blood Pressure 148/94 H 03/18/25 22:23 Pulse Oximetry (%) 96 03/18/25 22:23 Oxygen Delivery Method Room Air 03/18/25 22:23 Upper Respiratory Infection Patient data External records reviewed:: Other (specify) Clinical information provided by:: patient Social determinants that could affect healthcare access:: none Patient has the following chronic illnesses:: none How is presenting disease/condition affected by chronic disease/condition?: no chronic disease Evaluation data The following diagnostics were reviewed and interpreted by me:: lab results and radiology exam(s) Lab and/or radiology exams considered but not ordered:: none Interpretation Summary: COVID and flu negative chest x-ray suspicious for right lower lobe pneumonia however I do not see an infiltrate or opacities patient does not have lower respiratory symptoms but upper respiratory symptoms therefore we will treat for viral infection Medications / Prescriptions Medications or Prescriptions considered but not ordered:: none Medication administrations:: none Consultations Consultation(s) initiated? (list below): No Diagnosis Upper Respiratory Differential Diagnosis: upper respiratory infection, otitis media, sinusitis, viral infection and influenza Most likely diagnosis given after review of the tests above:: viral URI Admission Indicated Admission indicated?: not indicated Admission Request Was there a request for admission?: No Disposition Plan Disposition Plan: Discharge Discharge Attestation Discharge Attestation: The patient and all family members were given an opportunity to ask questions and understood the discharge instructions. Discharge instructions specifically effects, indications for sooner follow up or return to the emergency department, and the expected course of current diagnosis. Patient condition: Stable Discharge Plan Plan Patient Disposition: HOME (Self Care) Prescriptions/Referrals Prescriptions/Med Rec: New promethazine-codeine 6.25-10 mg/5 mL syrup 5 ml PO Q6H PRN (Reason: cough) Qty: 118 0RF No Action ibuprofen 600 mg Tablet 600 mg PO Q6H PRN (Reason: Pain) fluconazole [Diflucan] 150 mg tablet 150 mg PO QDAY Qty: 1 0RF azithromycin 250 mg tablet See Rx Instructions .ROUTE .COMPLEX Qty: 6 0RF Rx Instructions: For 250 mg dose pack: take 500 mg today (day 1), then 250 mg for 4 days (days 2-5) acetaminophen 500 mg tablet 1,000 mg PO QID PRN (Reason: fever or pain) Qty: 30 0RF meclizine 50 mg tablet 50 mg PO BID PRN (Reason: dizziness) Qty: 20 0RF dicyclomine 20 mg tablet 20 mg PO QID PRN (Reason: abdominal pain) Qty: 14 0RF ondansetron 4 mg tablet,disintegrating 4 mg PO TID PRN (Reason: nausea and vomiting) Qty: 14 0RF ibuprofen 800 mg tablet 800 mg PO TID PRN (Reason: pain) Qty: 30 0RF Referrals: Lydia Ortiz FNP [Primary Care Provider] - In 1 week Problem List Clinical Impression: Viral URI Patient/Caregiver Discharge Instructions Discharge Activity: activity as tolerated Education Materials: ED URI, Viral, No Abx (Adult) Additional Instructions: Your lab tests are negative symptoms most likely caused by a virus hydrate well take medications for symptoms as needed and follow up with your primary care provider if symptoms does not improve in 3-5 days Print Language: Turkish Stand Alone Forms: Nancy Award Info., Patient Portal Info Letter
[2025-03-19 00:34] VITALS: BP 132/88; PULSE 95; RESP 20; TEMP 36.9; O2SAT 96
== END 2025-03-19 00:43 | disposition home or self-care (01) ==
PROVIDERS: Emergency Provider Emergency Medicine; PCP Nurse Practitioner
DX: J06.9 Acute upper respiratory infection, unspecified (principal)
CPT/HCPCS: 71046; 87400; 87811; 99283

== ENCOUNTER 2025-04-19 21:03 | Emergency (ER) | payer MEDICAID, SELFPAY ==
[2025-04-19 21:04] VITALS: BMI 44.4
--- NOTE | 2025-04-19 21:06 | EKG_ITS ---
[facility] Test Date: 2025-04-19 Pat Name: ALEX LYONS Department: Room: - Gender: Female [employer] Keeper: : 1985 Requested By: ED Temporary Provider Order Number: [id number] Reading MD: ED Temporary Provider Measurements Intervals [place] Rate: 103 P: 43 AR: 171 QRS: 45 QRSD: 108 T: 30 QT: 338 QTc: 443 Interpretive Statements SINUS TACHYCARDIA LOW QRS VOLTAGE IN PRECORDIAL LEADS [QRS DEFLECTION < 1.0 mV IN CHEST LEADS] ABNORMAL RHYTHM ECG Compared to ECG 11/13/2024 19:29:06 Low QRS voltage now present Sinus rhythm no longer present /store/S0/[id number].pdf
[2025-04-19 21:23] VITALS: BP 139/93; PULSE 105; RESP 18; TEMP 37; O2SAT 95
--- NOTE | 2025-04-19 21:23 | PD.EDRME ---
Rapid Medical Screening Exam RME Arrival date/time: 04/19/25 21:03 This is a case of 39-year-old female who has a history of diabetes came in in the emergency room due to high blood sugar at home noted 450 with headache and palpitation and chest pain persistence of the symptoms this patient decided to start consulted in the emergency room Chief Complaint: General Adult/Misc Complain Time Seen by Provider: 04/19/25 21:09 Exam: Awake alert oriented x 4 no focal deficit GCS 15/15 steady gait heart normal rate regular rhythm no murmur clear breath sounds Clinical Impression: Headache chest pain palpitation hyperglycemia
--- NOTE | 2025-04-19 21:45 | EDNOTE_ITS ---
ED General RME/HPI General Chief complaint: General Adult/Misc Complain Stated complaint: PALPITATIONS, HIGH BLOOD SUGAR Time Seen by Provider: 04/19/25 21:09 Arrival date/time: 04/19/25 21:03 RME / HPI RME / HPI narrative: 04/19/25 21:03 This is a case of 39-year-old female who has a history of diabetes came in in the emergency room due to high blood sugar at home noted 450 with headache and palpitation and chest pain persistence of the symptoms this patient decided to start consulted in the emergency room Dr. Escobar?s Main ED Evaluation: 39yo female with a history of DM presents to the ED for a chief complaint of elevated blood sugar. Patient states she has not been taking her metformin. Reports associated excessive thirst, palpitations, generalized weakness, and dizziness. Patient denies any chest pain, shortness of breath, or any other associated symptoms. NKA. Patient notes she is scheduled for bariatric surgery on 05/22/25. Related Data Home Medications ?Medication ?Instructions ?Recorded ?Confirmed ibuprofen 600 mg tablet 600 mg PO Q6H PRN Pain 02/1202/13/20 Previous Rx's ?Medication ?Instructions ?Recorded fluconazole 150 mg tablet 150 mg PO QDAY #1 tab (Diflucan) acetaminophen 500 mg tablet 1,000 mg (2 x 500 mg) PO Q ID PRN 05/31/21 fever or pain #30 tabs azithromycin 250 mg tablet See Rx Instructions PO .COM PLEX #6 05/31/21 tabs meclizine 50 mg tablet 50 mg PO BID PRN dizziness # 20 tabs 04/11/23 dicyclomine 20 mg tablet 20 mg PO QID PRN abdominal p ain 12/13/23 #14 tabs ondansetron 4 mg disintegrating 4 mg PO TID PRN nausea and 12/13/23 tablet vomiting #14 tabs ibuprofen 800 mg tablet 800 mg PO TID PRN pain #30 t abs 07/23/24 promethazine 6.25 mg-codeine 10 5 ml PO Q6H PRN cough #118 mL 03/19/25 mg/5 mL syrup metformin 500 mg tablet 500 mg PO BID #60 tabs 04/19 Allergies Allergy/AdvReac Type Severity Reaction Status Date / Time No Known Allergies Allergy Verified 04/19/25 21:03 Review of Systems Review of Systems Systems Reviewed: All systems reviewed, normal except as documented Past Medical History Past Medical History CARDIAC: Positive Hypercholesterolemia; Negative Cardiac Disorders or Congestive Heart Failure RESPIRATORY: Negative Chronic Obstructive Pulmonary Disease (COPD) or Asthma GENITOURINARY: Negative Renal Disease MUSCULOSKELETAL: Positive Carpal Tunnel Syndrome ENDOCRINE: Positive Diabetes Mellitus Type 2; Negative Diabetes Mellitus Type 1 HEMATOLOGIC: Negative Sickle Cell Disease Surgical History SURGICAL: Positive Section Social History SMOKING STATUS: Never smoker SUBSTANCE USE: does not use ED Exam Narrative Physical exam: Generally patient is alert and in no obvious distress, heart regular rate and rhythm, lungs clear to auscultation equal bilaterally, abdomen soft nondistended nontender, skin is warm pale and dry, neurologic exam [place] Coma Scale 15 Course Quality Measures none Orders Category Date Time Status EKG (ED ONLY) *Do not use* NOW Care 04/19/25 21:06 Completed Fingerstick [Bedside Blood Glucose] NOW Care 04/19/25 21:06 Active EKG (ED Only) Stat Exams 04/19/25 21:06 Draft BNP [B-Type Natriuretic Peptide] Stat Lab 04/19/25 21:36 Completed Beta Hydroxybutyrate Stat Lab 04/19/25 21:36 Completed CBC Stat Lab 04/19/25 21:36 Completed Comprehensive Metabolic Panel Stat Lab 04/19/25 21:36 Completed HCG Qualitative,Urine Stat Lab 04/19/25 21:30 Completed TSH [Thyroid Stimulating Hormone] Stat Lab 04/19/25 21:36 Completed Troponin I Stat Lab 04/19/25 21:36 Completed Urinalysis Stat Lab 04/19/25 21:30 Completed Venous Blood Gas Stat Lab 04/19/25 21:36 Completed Insulin Regular Med 04/19/25 22:40 Discontinued 12 unit IV X1 ONE Insulin Regular Med 04/19/25 23:06 Discontinued 8 unit IV X1 ONE Sodium Chloride 0.9% 1000 ml [Ns] 1,000 ml Med 04/19/25 21:22 Discontinued IV 999 mls/hr Vital Signs Vital signs: Vital Signs Temperature 98.6 F 04/19/25 21:23 Pulse Rate 105 H 04/19/25 21:23 Respiratory Rate 18 04/19/25 21:23 Blood Pressure 139/93 H 04/19/25 21:23 Pulse Oximetry (%) 95 04/19/25 21:23 Oxygen Delivery Method Room Air 04/19/25 21:23 Discharge Plan Plan Patient Disposition: HOME (Self Care) Prescriptions/Referrals Prescriptions/Med Rec: New metformin 500 mg tablet 500 mg PO BID Qty: 60 0RF No Action ibuprofen 600 mg Tablet 600 mg PO Q6H PRN (Reason: Pain) fluconazole [Diflucan] 150 mg tablet 150 mg PO QDAY Qty: 1 0RF azithromycin 250 mg tablet See Rx Instructions .ROUTE .COMPLEX Qty: 6 0RF Rx Instructions: For 250 mg dose pack: take 500 mg today (day 1), then 250 mg for 4 days (days 2-5) acetaminophen 500 mg tablet 1,000 mg PO QID PRN (Reason: fever or pain) Qty: 30 0RF meclizine 50 mg tablet 50 mg PO BID PRN (Reason: dizziness) Qty: 20 0RF dicyclomine 20 mg tablet 20 mg PO QID PRN (Reason: abdominal pain) Qty: 14 0RF ondansetron 4 mg tablet,disintegrating 4 mg PO TID PRN (Reason: nausea and vomiting) Qty: 14 0RF ibuprofen 800 mg tablet 800 mg PO TID PRN (Reason: pain) Qty: 30 0RF promethazine-codeine 6.25-10 mg/5 mL syrup 5 ml PO Q6H PRN (Reason: cough) Qty: 118 0RF Problem List Clinical Impression: Poorly controlled diabetes mellitus Patient/Caregiver Discharge Instructions Education Materials: ED Diabetes- Overview Additional Instructions: Metformin as prescribed. Follow-up with your doctor. Return to ER as needed or if condition worsens. Print Language: [place] Islander Stand Alone Forms: Nancy Award Info., Patient Portal Info Letter MDM Narrative MDM hospital course (for use when minimal MDM required): Scribe Attestation: 04/19/25 - Constance Asencio am scribing for and in the presence of Dr. Escobar. Cardiac workup is unremarkable. EKG showed mild sinus tachycardia at a rate of 103 without ischemic change or ectopy. Troponin is not elevated. Patient is not diabetic ketoacidosis. Patient was hydrated with a liter of normal saline and given 8 units regular insulin IV for elevated blood sugar here in the emergency room. She will be restarted on her metformin to be taken as prescribed. Follow-up with her doctor. Return to ER as needed or if condition worsens. I interpreted all labs. Clinical Information Provided by: patient Medical Records reviewed [facility] (Per chart review, patient was seen here on 03/18/25 for viral URI.) Meds/Rx considered, not ordered None Labs/Rad/Tests considered, not ordered None Chronic Illness/Social Conditions Explain: Hx DM, HLD Labs Labs: interpreted by me Medication Administration(s) Medication Administration History Discontinued Medications Sodium Chloride (Ns) 1,000 mls @ 999 mls/hr IV .Q1H1M ONE Stop: 04/19/25 22:22 Last Infusion: 04/19/25 23:07 Dose: Infused Documented By: Admin: 04/19/25 21:54 Dose: 999 mls/hr Documented By: CCT Insulin Human Regular (Insulin Hum Regular 1 Unit/0.01 Ml (Per Unit)) 12 unit IV X1 ONE Stop: 04/19/25 22:41 Last Admin: 04/19/25 23:09 Dose: Not Given Documented By: CCT Non-Admin Reason: Discontinued Insulin Human Regular (Insulin Hum Regular 1 Unit/0.01 Ml (Per Unit)) 8 unit IV X1 ONE Stop: 04/19/25 23:07 see above Diagnosis Differential Diagnosis ED Complaint MDM: See MDM
[2025-04-19 21:48] LABS: Collection Type, Urine Clean Catch
[2025-04-19 21:50] LABS: Base Excess, Venous 3 (-3-3); O2 Saturation, Venous 60 % (96-97); PCO2, Venous 46 mmHg (36-56); PO2, Venous 31 mmHg (15-58); pH, Venous 7.40 (7.33-7.66)
[2025-04-19 21:52] LABS: Basophils # (Auto) 0.1 Thou/mm3 (0.0-0.2); Basophils % (Auto) 1 % (0-2.5); Eosinophils # (Auto) 0.4 Thou/mm3 (0.0-0.5); Eosinophils % (Auto) 3 % (0-10); Hematocrit 40.6 % (36.0-46.0); Hemoglobin 13.9 g/dL (12.0-16.0); Immature Granulocytes Auto 0.07 Thou/mm3 (0.00-0.00); Lymphocytes # (Auto) 4.8 Thou/mm3 (1.0-4.8); Lymphocytes % (Auto) 38 % (10-50); Mean Corpuscular HGB Conc 34.2 g/dl (31.0-37.0); Mean Corpuscular Hemoglobin 29.6 pg (25.0-35.0); Mean Corpuscular Volume 86 fL (80-100); Monocytes # (Auto) 0.7 Thou/mm3 (0.0-0.8); Monocytes % (Auto) 6 % (0-12); Neutrophils # (Auto) 6.8 Thou/mm3 (1.8-7.7); Neutrophils % (Auto) 53 % (37-80); Nucleated Red Blood Cell # 0.00 Thou/mm3 (0.00-0.00); Nucleated Red Blood Cell % 0 /100 WBC (0); Platelet Count 329 Thou/mm3 (140-440); RDW Standard Deviation 39.3 fL (36.4-46.3); Red Blood Count 4.70 Miln/mm3 (4.00-5.20); White Blood Count 12.9 Thou/mm3 (3.6-11.0)
[2025-04-19] MEDS: SODIUM CHLORIDE 0.9% 1000 ML 1,000 ML 999 ML IV (21:54)
[2025-04-19 21:56] LABS: Beta Hydroxybutyrate 0.1 mmol/L (<0.6)
[2025-04-19 22:06] LABS: Bilirubin,Urine Negative (Negative); Blood,Urine Negative (Negative); Clarity,Urine Clear (Clear/Hazy); Color,Urine Colorless (Lt Yel-Yel); Glucose, Urine 4+ (Negative); Ketones,Urine Negative (Negative); Leukocyte Esterase,Urine Negative (Negative); Nitrite,Urine Negative (Negative); PH,Urine 6.0 (5.0-7.0); Protein,Urine Negative (Neg - Trace); RBC,Urine 3 /hpf (0-3); Specific Gravity,Urine 1.023 (1.001-1.035); Squamous Epithelial Cell,Urine < 1 /hpf (0-5); Urobilinogen,Urine Negative mg/dL (0.0-1.0); WBC,Urine 1 /hpf (0-5)
[2025-04-19 22:17] LABS: HCG Qualitative,Urine Negative
[2025-04-19 22:20] LABS: B-Type Natriuretic Peptide < 20 pg/mL (0-100)
[2025-04-19 22:32] LABS: Alanine Aminotransferase 59 U/L (10-49); Albumin, Serum 4.8 gm/dL (3.5-5.0); Albumin/Globulin Ratio 2.0 (1.2-2.2); Alkaline Phosphatase 137 U/L (46-116); Anion Gap 11 (7-16); Aspartate Amino Transferase 43 U/L (0-34); BUN/Creatinine Ratio 9 Ratio (12-20); Bilirubin,Total 0.3 mg/dL (0.3-1.2); Blood Urea Nitrogen 11 mg/dL (9-23); Calcium 10.1 mg/dL (8.3-10.6); Calcium (Corrected) 10.1 mg/dL (8.5-10.1); Carbon Dioxide 26.6 mMol/L (20.0-31.0); Chloride 100 mMol/L (98-107); Creatinine (Component) 1.2 mg/dL (0.6-1.3); Estimated Creatinine Clearance 84.1 mL/min (>60); Globulin 2.4 gm/dL (2.3-3.5); Osmolality,Calculated 294 (275-295); Potassium 4.3 mMol/L (3.4-5.1); Sodium 138 mMol/L (136-145); Thyroid Stimulating Hormone 3.59 uIU/mL (0.55-4.78); Total Protein 7.2 gm/dL (5.7-8.2); Troponin I < 0.002 ng/mL (0.0-0.045); eGFR 59 See Note
[2025-04-19 22:34] LABS: Glucose 440 mg/dL (74-106)
[2025-04-19] MEDS: INSULIN HUM REGULAR 1 UNIT/0.01 ML (PER UNIT) 8 UNIT IV (23:13)
[2025-04-19 23:29] VITALS: BP 141/99; PULSE 96; RESP 18; TEMP 36.8; O2SAT 95
[2025-04-20 00:25] VITALS: BP 137/80; PULSE 92; RESP 18; TEMP 36.8; O2SAT 96
== END 2025-04-20 00:25 | disposition home or self-care (01) ==
LOC: SERX 23:27
PROVIDERS: Nurse Practitioner Family; Emergency Provider Emergency Medicine; PCP Nurse Practitioner
DX: E11.65 Type 2 diabetes mellitus with hyperglycemia (principal); B97.89 Other viral agents as the cause of diseases classified elsewhere; E11.69 Type 2 diabetes mellitus with other specified complication; E78.5 Hyperlipidemia, unspecified; J06.9 Acute upper respiratory infection, unspecified; Z79.84 Long term (current) use of oral hypoglycemic drugs
CPT/HCPCS: 36415; 80053; 81001; 81025; 82010; 82803; 83880; 84443; 84484; 85025; 93005; 96360; 99283; J1815; J7030